=== PATIENT | male | born 1960 | race Caucasian/White ===

== ENCOUNTER 2017-10-07 22:05 | Inpatient (IN) | payer MEDICARE ==
[~2017-10-07] VITALS: Ht 177.8 cm; Wt 88.9 kg
[2017-10-07] MEDS ORDERED: ZOLP10 PO (22:25)
[2017-10-07] MEDS ORDERED: CLOP75 PO (22:25)
[2017-10-07] MEDS ORDERED: Percocet 10-321 EACH PO (22:25)
[2017-10-07] MEDS ORDERED: ASPI325 PO (22:25)
[2017-10-07 22:39] LABS: BASOPHILS ABSOLUTE AUTO 0.02 K/mm3 (0.00-0.23); BASOPHILS PERCENT AUTO 0 % (0-2); EOSINOPHILS ABSOLUTE AUTO 0.09 K/mm3 (0.00-0.68); EOSINOPHILS PERCENT AUTO 2 % (0-6); Hematocrit 39.3 % (37.0-53.0); Hemoglobin 13.1 g/dL (13.5-17.5); IMMATURE GRAN ABSOLUTE AUTO 0.01 K/mm3 (0.00-0.10); IMMATURE GRAN PERCENT AUTO 0 % (0-1); LYMPHOCYTES ABSOLUTE AUTO 1.51 K/mm3 (0.84-5.20); LYMPHOCYTES PERCENT AUTO 34 % (21-46); MONOCYTES ABSOLUTE AUTO 0.43 K/mm3 (0.16-1.47); MONOCYTES PERCENT AUTO 10 % (4-13); Mean Corpuscular HGB 31.6 pg (26.0-34.0); Mean Corpuscular HGB Conc 33.3 g/dL (31.5-36.5); Mean Corpuscular Volume 95 fL (80-100); Mean Platelet Volume 9.8 fL (9.1-12.4); NEUTROPHILS ABSOLUTE AUTO 2.43 K/mm3 (1.96-9.15); NEUTROPHILS PERCENT AUTO 54 % (41-73); Platelet Count 221 K/mm3 (150-400); RDW Standard Deviation 49.1 fL (35.1-46.3); Red Blood Cell Count 4.15 M/mm3 (4.30-5.90); White Blood Cell Count 4.49 K/mm3 (4.00-11.30)
[2017-10-07 22:56] LABS: Alanine Aminotransfer (ALT/SGP 28 U/L (12-78); Albumin, Blood 3.6 g/dL (3.4-5.0); Albumin/Globulin Ratio 0.9 (0.8-1.8); Alk Phos 93 U/L (50-136); Anion Gap 8 mmol/L (6-16); Aspartate Aminotrans (AST/SGOT 23 U/L (12-37); Bilirubin, Total 0.2 mg/dL (0.1-1.0); Blood Urea Nitrogen 14 mg/dL (8-24); Bun/Creatinine Ratio 14.9 (12.0-20.0); CO2, Blood 25 mmol/L (21-32); Calcium, Blood 8.7 mg/dL (8.5-10.1); Chloride, Blood 105 mmol/L (98-108); Creatinine, Blood 0.94 mg/dL (0.60-1.20); Globulin, Blood 4.2 g/dL (2.2-4.0); Glomerular Filtration Rate >60 (60-); Glucose, Blood 84 mg/dL (70-99); Potassium, Blood 3.6 mmol/L (3.5-5.5); Sodium, Blood 138 mmol/L (136-145); Total Protein, Blood 7.8 g/dL (6.4-8.2)
[2017-10-08 06:10] LABS: Troponin I 0.036 ng/mL (0.000-0.040)
[2017-10-08 15:02] LABS: BASOPHILS ABSOLUTE AUTO 0.02 K/mm3 (0.00-0.23); BASOPHILS PERCENT AUTO 1 % (0-2); EOSINOPHILS ABSOLUTE AUTO 0.09 K/mm3 (0.00-0.68); EOSINOPHILS PERCENT AUTO 2 % (0-6); Hematocrit 40.3 % (37.0-53.0); Hemoglobin 13.3 g/dL (13.5-17.5); IMMATURE GRAN ABSOLUTE AUTO 0.01 K/mm3 (0.00-0.10); IMMATURE GRAN PERCENT AUTO 0 % (0-1); LYMPHOCYTES PERCENT AUTO 32 % (21-46); MONOCYTES ABSOLUTE AUTO 0.41 K/mm3 (0.16-1.47); MONOCYTES PERCENT AUTO 9 % (4-13); Mean Corpuscular HGB 31.9 pg (26.0-34.0); Mean Corpuscular Volume 97 fL (80-100); Mean Platelet Volume 10.1 fL (9.1-12.4); NEUTROPHILS PERCENT AUTO 56 % (41-73); Platelet Count 223 K/mm3 (150-400); RDW Coefficient Variation 14.1 % (11.7-14.2); RDW Standard Deviation 50.6 fL (35.1-46.3); Red Blood Cell Count 4.17 M/mm3 (4.30-5.90); White Blood Cell Count 4.43 K/mm3 (4.00-11.30)
[2017-10-08] MEDS ORDERED: GABA600 PO (15:02)
[2017-10-08 15:10] LABS: Alanine Aminotransfer (ALT/SGP 24 U/L (12-78); Albumin, Blood 3.6 g/dL (3.4-5.0); Alk Phos 93 U/L (50-136); Anion Gap 7 mmol/L (6-16); Aspartate Aminotrans (AST/SGOT 26 U/L (12-37); Bilirubin, Total 0.4 mg/dL (0.1-1.0); Blood Urea Nitrogen 12 mg/dL (8-24); Bun/Creatinine Ratio 10.9 (12.0-20.0); CO2, Blood 27 mmol/L (21-32); Calcium, Blood 9.2 mg/dL (8.5-10.1); Chloride, Blood 105 mmol/L (98-108); Globulin, Blood 3.7 g/dL (2.2-4.0); Glomerular Filtration Rate >60 (60-); Glucose, Blood 92 mg/dL (70-99); Potassium, Blood 4.3 mmol/L (3.5-5.5); Sodium, Blood 139 mmol/L (136-145); Total Protein, Blood 7.3 g/dL (6.4-8.2); Troponin I 0.034 ng/mL (0.000-0.040)
[2017-10-08 15:30] LABS: Influenza A Negative (NEGATIVE); Influenza B Negative (NEGATIVE)
[2017-10-08] MEDS ORDERED: CLON.5 PO (18:15)
[2017-10-08] MEDS ORDERED: NUCYNTA ER150 MG PO (18:15)
[2017-10-08] MEDS ORDERED: PRAZ1 PO (18:16)
[2017-10-08] MEDS ORDERED: DIVA500ER PO (18:16)
[2017-10-08] MEDS ORDERED: OXCA150 PO (18:17)
[2017-10-08] MEDS ORDERED: OMEPRAZOLE MAGN20 MG PO (18:17)
[2017-10-08] MEDS ORDERED: Metoprolol Tar100 MG PO (18:18)
[2017-10-08] MEDS ORDERED: LATUDA40 MG PO (18:18)
[2017-10-08] MEDS ORDERED: BUSP5 PO (18:18)
[2017-10-10] MEDS ORDERED: ATOR80 PO (17:46)
[2017-10-11 04:56] LABS: Alanine Aminotransfer (ALT/SGP 22 U/L (12-78); Albumin, Blood 3.4 g/dL (3.4-5.0); Albumin/Globulin Ratio 0.9 (0.8-1.8); Alk Phos 85 U/L (50-136); Anion Gap 8 mmol/L (6-16); Aspartate Aminotrans (AST/SGOT 17 U/L (12-37); Bilirubin, Total 0.6 mg/dL (0.1-1.0); Blood Urea Nitrogen 14 mg/dL (8-24); Bun/Creatinine Ratio 15.4 (12.0-20.0); CO2, Blood 25 mmol/L (21-32); Calcium, Blood 8.7 mg/dL (8.5-10.1); Chloride, Blood 108 mmol/L (98-108); Creatinine, Blood 0.91 mg/dL (0.60-1.20); Globulin, Blood 3.7 g/dL (2.2-4.0); Glomerular Filtration Rate >60 (60-); Glucose, Blood 84 mg/dL (70-99); Potassium, Blood 3.8 mmol/L (3.5-5.5); Sodium, Blood 141 mmol/L (136-145); Total Protein, Blood 7.1 g/dL (6.4-8.2)
== END 2017-10-11 08:29 | disposition home or self-care (01) | DRG 287 ==
LOC: ER 22:05 → ERHOLD 22:06 → PCU 10-08 15:18
PROVIDERS: Emergency Medicine; Family Medicine; Internal Medicine
PROC: 4A023N7 Measurement of Cardiac Sampling and Pressure, Left Heart, Percutaneous Approach (ICD-10-PCS; principal; 2017-10-10)
PROC: B2111ZZ Fluoroscopy of Multiple Coronary Arteries using Low Osmolar Contrast (ICD-10-PCS; 2017-10-10)
DX: I25.119 Atherosclerotic heart disease of native coronary artery with unspecified angina pectoris (principal); T82.855A Stenosis of coronary artery stent, initial encounter; I25.2 Old myocardial infarction; G89.4 Chronic pain syndrome; G62.9 Polyneuropathy, unspecified; G47.00 Insomnia, unspecified
CPT/HCPCS: 36415; 71046; 80053; 82550; 84484; 85025; 87804; 93005; 93010; 93459; 96372; 96374; 96375; 96376; 99152; 99153; 99285; C1760; C1769; C1894; J1644; J1650; J2060; J2250; J2405; J3010; J7030; Q9967

== ENCOUNTER 2021-10-25 17:08 | Observation (INO) | payer MEDICARE ==
[~2021-10-25] VITALS: Ht 177.8 cm; Wt 89.5 kg
[~2021-10-25 17:08] MED LIST: ASPI325 PO; ATOR80 PO; BUSP5 PO; CLON.5 PO; CLOP75 PO; DIVA500ER PO; GABA600 PO; LATUDA40 MG PO; Metoprolol Tar100 MG PO; NUCYNTA ER150 MG PO; OMEPRAZOLE MAGN20 MG PO; OXCA150 PO; PRAZ1 PO; Percocet 10-321 EACH PO; ZOLP10 PO
[2021-10-25] MEDS ORDERED: DIVA500EC PO (17:19)
[2021-10-25] MEDS ORDERED: METO25ER PO (17:26)
[2021-10-25] MEDS ORDERED: PREG300 PO (17:27)
[2021-10-25 18:17] LABS: BASOPHILS ABSOLUTE AUTO 0.03 K/mm3 (0.00-0.23); BASOPHILS PERCENT AUTO 1 % (0-2); EOSINOPHILS PERCENT AUTO 2 % (0-6); Hematocrit 42.5 % (37.0-53.0); IMMATURE GRAN ABSOLUTE AUTO 0.02 K/mm3 (0.00-0.10); IMMATURE GRAN PERCENT AUTO 0 % (0-1); LYMPHOCYTES ABSOLUTE AUTO 2.28 K/mm3 (0.84-5.20); LYMPHOCYTES PERCENT AUTO 38 % (21-46); MONOCYTES ABSOLUTE AUTO 0.37 K/mm3 (0.16-1.47); MONOCYTES PERCENT AUTO 6 % (4-13); Mean Corpuscular HGB 30.1 pg (26.0-34.0); Mean Corpuscular HGB Conc 32.9 g/dL (31.5-36.5); Mean Corpuscular Volume 91 fL (80-100); NEUTROPHILS ABSOLUTE AUTO 3.17 K/mm3 (1.96-9.15); NEUTROPHILS PERCENT AUTO 53 % (41-73); Platelet Count 220 K/mm3 (150-400); RDW Coefficient Variation 15.2 % (11.7-14.2); RDW Standard Deviation 51.1 fL (35.1-46.3); Red Blood Cell Count 4.65 M/mm3 (4.30-5.90); White Blood Cell Count 5.97 K/mm3 (4.00-11.30)
[2021-10-25] MEDS ORDERED: ZOLP10 PO (18:25)
--- NOTE | 2021-10-25 18:39 | NUR ---
AT 1650 PT ARRIVED TO UNIT WITH EMS VIA GURNEY AFTER TRANSFER FROM [facility]. PT ASSISTED TO BED BY STAFF USING SLIDER SHEET. PT IS ALERT AND ORIENTED. VSS, ON ROOM AIR TOLERATING WELL. PT ORIENTED TO UNIT, CALL LIGHT WITHIN REACH. PT ABLE TO PROVIDE MEDICATION AND HEALTH HISTORY. PT COMPLAINED OF 8/10 CHEST PAIN, MEDICATE PER EMAR. PT PROVIDED WITH FOOD FROM [facility]. TM.
[2021-10-25 18:40] LABS: Anti-Xa UFH, PHA Monitoring 0.28 IU/mL; International Normalized Ratio 1.1; Prothrombin Time Results 11.5 Sec (9.7-11.5)
[2021-10-25 18:44] LABS: Alanine Aminotransfer (ALT/SGP 26 U/L (12-78); Albumin, Blood 3.7 g/dL (3.4-5.0); Albumin/Globulin Ratio 0.9 (0.8-1.8); Alk Phos 113 U/L (50-136); Anion Gap 8 mmol/L (6-16); Aspartate Aminotrans (AST/SGOT 21 U/L (12-37); Bilirubin, Total 0.6 mg/dL (0.1-1.0); Blood Urea Nitrogen 17 mg/dL (8-24); Bun/Creatinine Ratio 18.1 (12.0-20.0); CO2, Blood 25 mmol/L (21-32); Calcium, Blood 9.2 mg/dL (8.5-10.1); Chloride, Blood 107 mmol/L (98-108); Creatinine, Blood 0.94 mg/dL (0.60-1.20); Globulin, Blood 4.1 g/dL (2.2-4.0); Glomerular Filtration Rate >60 (60-); Glucose, Blood 84 mg/dL (70-99); Potassium, Blood 3.9 mmol/L (3.5-5.5); Sodium, Blood 140 mmol/L (136-145); Total Protein, Blood 7.8 g/dL (6.4-8.2)
[2021-10-26 00:15] LABS: U Amphetamine Screen Not Detected; U Barbituate Screen Not Detected; U Benzodiazapine Screen DETECTED; U Buprenorphine Screen Not Detected; U Cannabinoids Screen DETECTED; U Cocaine Screen Not Detected; U Methadone Screen Not Detected; U Methamphetamine Screen Not Detected; U Opiates Screen DETECTED; U Oxycodone Screen Not Detected; U Phencyclidine Screen Not Detected; U Propoxyphene Screen Not Detected
[2021-10-26 03:46] LABS: BASOPHILS ABSOLUTE AUTO 0.02 K/mm3 (0.00-0.23); BASOPHILS PERCENT AUTO 0 % (0-2); EOSINOPHILS ABSOLUTE AUTO 0.01 K/mm3 (0.00-0.68); EOSINOPHILS PERCENT AUTO 0 % (0-6); Hematocrit 42.3 % (37.0-53.0); Hemoglobin 13.7 g/dL (13.5-17.5); IMMATURE GRAN ABSOLUTE AUTO 0.02 K/mm3 (0.00-0.10); IMMATURE GRAN PERCENT AUTO 0 % (0-1); LYMPHOCYTES ABSOLUTE AUTO 1.02 K/mm3 (0.84-5.20); LYMPHOCYTES PERCENT AUTO 19 % (21-46); MONOCYTES ABSOLUTE AUTO 0.06 K/mm3 (0.16-1.47); MONOCYTES PERCENT AUTO 1 % (4-13); Mean Corpuscular HGB 29.3 pg (26.0-34.0); Mean Corpuscular HGB Conc 32.4 g/dL (31.5-36.5); Mean Corpuscular Volume 90 fL (80-100); Mean Platelet Volume 11.2 fL (9.1-12.4); NEUTROPHILS ABSOLUTE AUTO 4.29 K/mm3 (1.96-9.15); NEUTROPHILS PERCENT AUTO 79 % (41-73); Platelet Count 236 K/mm3 (150-400); RDW Coefficient Variation 15.1 % (11.7-14.2); RDW Standard Deviation 49.5 fL (35.1-46.3); Red Blood Cell Count 4.68 M/mm3 (4.30-5.90); White Blood Cell Count 5.42 K/mm3 (4.00-11.30)
[2021-10-26 04:02] LABS: Alanine Aminotransfer (ALT/SGP 25 U/L (12-78); Albumin, Blood 3.7 g/dL (3.4-5.0); Alk Phos 114 U/L (50-136); Anion Gap 9 mmol/L (6-16); Aspartate Aminotrans (AST/SGOT 20 U/L (12-37); Bilirubin, Total 0.4 mg/dL (0.1-1.0); Blood Urea Nitrogen 23 mg/dL (8-24); Bun/Creatinine Ratio 20.2 (12.0-20.0); CHOL/HDL RATIO 6.4; CO2, Blood 23 mmol/L (21-32); Calcium, Blood 9.3 mg/dL (8.5-10.1); Chloride, Blood 106 mmol/L (98-108); Cholesterol 257 mg/dL (50-200); Creatinine, Blood 1.14 mg/dL (0.60-1.20); Globulin, Blood 3.8 g/dL (2.2-4.0); Glomerular Filtration Rate >60 (60-); Glucose, Blood 141 mg/dL (70-99); HDL Cholesterol 40 mg/dL (>39); LDL/HDL RATIO 4.8; Low Density Lipoprotein Chol 191 mg/dL (0-110); Potassium, Blood 4.4 mmol/L (3.5-5.5); Sodium, Blood 138 mmol/L (136-145); Total Protein, Blood 7.5 g/dL (6.4-8.2); Triglycerides 128 mg/dL (30-160); Very Low Density Lipoprot Chol 25 mg/dL (6-32)
--- NOTE | 2021-10-26 06:00 | NUR ---
SHIFT SUMMARY PT SLEPT POORLY. ORIENTED X4. VS STABLE PER PATIENT TREND. PT WITH CONSISTENT CHEST PAIN THAT RADIATED OVER NIGHT. PRN MORPHINE GIVEN WITH SOME RELIEF. REFUSED PO TYLENOL AND PERCOCET. EDUCATED ON RISK/BENEFIT RATIO OF TAKING PERCOCET PT HAD CONCERN ABOUT RELAPSING. PT IS AMICABLE, BUT ANXIOUS AT TIMES. HEPARIN GTT RUNNING PER PROVIDER ORDER. VOIDING PER URINAL. BED ALARM IN PLACE. CALL LIGHT WITHIN REACH. WILL CONTINUE TO MONITOR AND PASS ON TO DAY RN.
--- NOTE | 2021-10-26 08:01 | NUR ---
ASSUMED CARE OF PT AT 0700. PT TRANSPORTED TO [facility]IA BED WITH [facility] STAFF, HEPARIN GTT RUNNING, PRE-MEDICATIONS GIVEN, ECHO COMPLETED BEFORE PT LEFT ROOM.
--- NOTE | 2021-10-26 18:02 | NUR ---
PT TO PAINTER PLATE TODAY WITH NO INTERVENTIONS, R GROIN SITE WNL W ANGIO SEAL. PT C/O INTERMITTENT CHEST AND BACK PAIN, DR LINO NOTIFIED, PT WILL BE DISCHARGED TOMORROW WHEN HIS SON CAN COME [place] FROM [place] TO GET [place]. NO ACUTE EVENTS T/O THE SHIFT. CALL LIGHT IN REACH WILL CONTINUE TO MONITOR AND GIVE REPORT TO NOC SHIFT RN.
--- NOTE | 2021-10-27 02:05 | NUR ---
2340 - PT CALLED OUT COMPLAINING OF 7/10 CHEST PAIN RADIATING TO HIS BACK. PT STATES SAME LEVEL OF PAIN HE HAS BEEN DEALING WITH. OFFERED AVAILABLE TYLENOL PRN NORCO HAD ALREADY BEEN GIVEN. PT REFUSED STATING "THAT DOESN'T WORK. WHY CAN'T I HAVE THE IV STUFF?" EXPLAINED TO PATIENT THAT GOAL WAS TO RETURN HOME IN AM AND WE CAN'T GO HOME WITH IV PAIN MEDICATIONS. OFFERED HEAT, ICE PACK, REPOSITIONING, AND DISTRACTION. PT REFUSED. VSS PER PT TREND. 0000 - NOTIFIED ON-CALL MD DR. DUCKWORTH OF PT CHEST PAIN AND REQUEST FOR PAIN MEDICATION. NO NEW ORDERS. 0015 - RETURNED TO PT ROOM TO UPDATE AND REASSESS PAIN. PT APPEARS TO BE SLEEPING COMFORTABLY WITH EVEN RESPIRATIONS. 0145 - PT CALLED OUT TO THIS RN WITH CONTINUED CHEST PAIN. TOLD PT THAT PRN NORCO WOULD BE AVAILABLE FOR ADMINISTRATION IN 20 MINUTES AND OFFERED NITRO PASTE. PT REFUSED NITRO PASTE AND BECAME ANGRY WHEN RN TOLD HIM THAT MD DIDN'T ORDER ADDITIONAL PAIN MEDICATIONS. STATES HE WANTS TO SPEAK TO THE MD HIMSELF OR THAT "I'LL JUST HAVE TO LEAVE IF MY PAIN ISN'T BEING TAKEN CARE OF". CALLED DR. DUCKWORTH AND NOTIFIED OF CONTINUED CHEST PAIN AND PT DESIRE TO SPEAK WITH HIM AND/OR LEAVE AMA. MD NOT AVAILABLE TO COME TO BEDSIDE. 0155 - CHECKED BACK IN TO UPDATE PT AND PROVIDE AMA FORM IF NECESSARY. PT ASLEEP AT THIS TIME.
--- NOTE | 2021-10-27 06:12 | NUR ---
SHIFT SUMMARY [id number] PT SLEPT INTERMITTENTLY OVERNIGHT, ORIENTED X4, FORGETFUL, LABILE MOOD AND REPEATS SELF AT TIMES, CONSTANT CHEST PAIN 7/10 WHEN AWAKE. PRNS GIVEN, PT REFUSING PO TYLENOL. LOW BPS (80S/50S) AT BEGINNING OF SHIFT, CALLED ON-CALL MD AND ONE TIME 500ML NS BOLUS GIVEN PER PROVIDER ORDER. OTHER VSS. BP IMPROVED THROUGHOUT THE NIGHT. R GROIN SITE CDI. PT UAL IN ROOM. WILL PASS ON TO DAY RN.
[2021-10-27] MEDS ORDERED: ASPI81CH PO (09:15)
[2021-10-27] MEDS ORDERED: ATOR80 PO (09:16)
[2021-10-27] MEDS ORDERED: CLOP75 PO (09:16)
[2021-10-27] MEDS ORDERED: LISI5 PO (09:17)
--- NOTE | 2021-10-27 11:36 | NUR ---
ASSUMED CARE OF PT AT 0700. PT DISCHARGED HOME IN THE CARE OF HIS SON. ALL BELONGINGS SENT WITH PT, DISCHARGE INSTRUCTIONS REVIEWED INCLUDING MEDICATION LIST, FOLLOW UP APPOINTMENTS, AND EDUCATION. PT VERBALIZES UNDERSTANDING AND HAS NO QUESTIONS OR CONCERNS AT THIS TIME. IV REMOVED, WNL. NO FURTHER DISCHARGE NEEDS IDENTIFIED AT THIS TIME.
== END 2021-10-27 11:53 | disposition home or self-care (01) ==
LOC: PCU 17:08
PROVIDERS: ADMIT Internal Medicine
DX: I21.4 Non-ST elevation (NSTEMI) myocardial infarction (principal); I25.10 Atherosclerotic heart disease of native coronary artery without angina pectoris; I25.810 Atherosclerosis of coronary artery bypass graft(s) without angina pectoris; R79.89 Other specified abnormal findings of blood chemistry; I10 Essential (primary) hypertension; F31.9 Bipolar disorder, unspecified; R73.03 Prediabetes; E78.5 Hyperlipidemia, unspecified; Z87.891 Personal history of nicotine dependence; Z95.1 Presence of aortocoronary bypass graft; Z95.5 Presence of coronary angioplasty implant and graft; Z86.73 Personal history of transient ischemic attack (TIA), and cerebral infarction without residual deficits
CPT/HCPCS: 36415; 76937; 80053; 80061; 83036; 84443; 84484; 85025; 85520; 85610; 93005; 93010; 93306; 93459; 99152; 99153; A9270; C1760; C1769; C1887; C1894; G0378; J1200; J1644; J2250; J2270; J3010; J7030; J7512; Q9967